=== PATIENT | female | born 1985 | race American Indian/Alaskan Native ===

== ENCOUNTER 2017-07-25 13:06 | Outpatient (CLI) | payer MEDICAID ==
[2017-07-25] MEDS ORDERED: GADOPENTETATE DIMEGLUMINE 5 ML VIAL IVP ONE ×2 (13:33→14:14)
[2017-07-25] MEDS ORDERED: LIDOCAINE 1% 10 ML MDV ONE (13:33)
[2017-07-25] MEDS ORDERED: IOTHALAMATE MEGLUMINE 50 ML VIAL ONE (13:33)
[2017-07-25] MEDS ORDERED: LIDOCAINE 1% 10 ML MDV SUBQ ONE (14:14)
[2017-07-25] MEDS ORDERED: IOTHALAMATE MEGLUMINE 50 ML VIAL IVP ONE (14:14)
[2017-07-25] MEDS ORDERED: BUFFERED LIDOCAINE 10 ML SYRINGE IU ONE (14:14)
--- NOTE | 2017-07-25 16:40 | MRI Report ---
EXAM: RIGHT HIP MRI ARTHROGRAM WITH CONTRAST EXAM DATE: 07/25/2017 03:11 PM. CLINICAL HISTORY: Right hip dysplasia. Right hip pain for more than 2 years. Clinical concern for rig ht acetabular labral tear. COMPARISON: Right hip radiography from 07/04/2017. TECHNIQUE: Multiplanar, multisequence T1-weighted and fluid-sensitive, small [id number] sequences of the hip and large [id number] sequences of the pelvis after an arthrographic injection of dilute gadolinium, dictated under a separate exam. Other: None. FINDINGS: Bones: There is an approximately 1.2 x 0.5 cm periacetabular or paralabral cyst adjacent to the poste rior superior aspect of the right acetabulum. No acute fracture or bone lesions. Right Hip: No acetabular retroversion. Femoral head/neck offset is within normal limits. No loose bod ies. There is a chondral-labral cleft at the posterior superior aspect of the right acetabulum (coron al images 13-15 on series 701, axial oblique image 21, and sagittal image 12). The ligamentum teres is intact. Other Joints: Degenerative disk changes at L5-S1 of the lumbar spine. The sacroiliac joints and pubic symphysis and left hip are unremarkable. Musculature: No edema or fatty atrophy. The gluteus medius and minimus tendons are normal. The visual ized hamstring tendons are normal. The ischiofemoral space is normal. Pelvic Cavity: The visualized viscera are unremarkable. No lymphadenopathy. No free fluid in the pelv is. Other: The visualized sciatic nerves are unremarkable. No bursitis. The subcutaneous tissues are unre markable. IMPRESSION: 1. An approximately 1.3 x 0.5 cm paralabral or periacetabular cyst adjacent to the posterior superior aspect of the right acetabulum. 2. A chondral-labral cleft at the posterior superior aspect of the right acetabulum representing a sm all undersurface partial tear/detachment at the posterior superior aspect of the acetabular labrum. 3. Degenerative disk changes at L5-S1 of the lumbar spine. [facility] MUSCULOSKELETAL RADIOLOGY SECTION Referring Provider Line: [phone] SITE ID: [id number]
--- NOTE | 2017-07-25 18:13 | XRAY Report ---
FLUOROSCOPICALLY-GUIDED RIGHT HIP INJECTION FOR MR ARTHROGRAM: 07/25/2017 CLINICAL INDICATION: Hip dysplasia, possible labral tear. FINDINGS: Following obtaining informed consent, the patient's right hip was prepped and draped in the usual sterile fashion. The skin and soft tissues were anesthetized with lidocaine. A spinal needle was inserted into the right hip joint, and following confirmation of needle positioning, a combination of iodinated contrast, dilute gadolinium, and lidocaine was injected intraarticularly. The patient tolerated the procedure well. No immediate complications. Spot image reveals no evidence of contrast extravasation. IMPRESSION: SUCCESSFUL RIGHT HIP INJECTION FOR MR ARTHROGRAM. FLUOROSCOPY TIME: 47 seconds; 1 spot image obtained. TD: 07/25/2017 18:11
== END 2017-07-25 13:07 | disposition home or self-care (01) ==
LOC: DI 13:06
PROVIDERS: ATTEND Orthopaedic Surgery
DX: M24.851 Other specific joint derangements of right hip, not elsewhere classified (principal); S73.191A Other sprain of right hip, initial encounter; M51.37 Other intervertebral disc degeneration, lumbosacral region
CPT/HCPCS: 27093; 73722; 77002; Q9961